=== PATIENT | female | born 1985 | race Caucasian/White ===

== ENCOUNTER → 2024-02-09 09:43 | Outpatient (CLI) | payer OTHER, SELFPAY ==
[2024-02-09 10:50] LABS: Add Manual Diff / Slide Review NO; Basophils Absolute Auto 0 /uL (0-100); Basophils Percent Auto 0.8 % (0-2); Eosinophils Absolute Auto 100 /uL (0-450); Eosinophils Percent Auto 2.5 % (2-4); Hematocrit 38.3 % (36-46); Hemoglobin 12.9 g/dL (12.0-16.0); Lymphocytes Absolute Auto 1100 /uL (1100-4500); Lymphocytes Percent Auto 28.2 % (25-40); Mean Corpuscular HGB Conc 33.8 % (30-36); Mean Corpuscular Hemoglobin 31.3 PG (26-34); Mean Corpuscular Volume 92.6 fL (80-100); Monocytes Absolute Auto 200 /uL (0-900); Monocytes Percent Auto 4.9 % (3-14); Neutrophils Absolute Auto 2400 /uL (1500-7000); Neutrophils Percent Auto 63.6 % (50-75); Platelet Count 271 X10^3/uL (150-400); Red Blood Cell Count 4.14 X10^6/uL (4.0-5.2); Red Cell Distribution Width 13.2 % (11.6-14.8); White Blood Cell Count 3.9 X10^3/uL (4.5-11.0)
[2024-02-09 12:54] LABS: Free T4, Direct Thyroxine 0.95 ng/dL (0.78-2.19)
[2024-02-09 13:08] LABS: TSH w/ Reflex to FT4 1.13 uIU/mL (0.47-4.68)
== END ==
PROVIDERS: PCP Family Medicine; Referring Provider Family Medicine; Visit Provider Family Medicine
DX: N96 Recurrent pregnancy loss (principal); O22.20 Superficial thrombophlebitis in pregnancy, unspecified trimester
CPT/HCPCS: 36415; 81241; 83520; 84439; 84443; 85025; 85303; 86147; 86148

== ENCOUNTER → 2024-03-02 11:49 | Outpatient (CLI) | payer OTHER, SELFPAY ==
--- NOTE | 2024-03-02 11:49 | DI.US.S_ITS ---
PROCEDURE: US PERIPH VENOUS LOW EXTREM LT INDICATIONS: r/o blood clot left thigh TECHNIQUE: Real-time imaging, as well as color and pulse Doppler interrogation, were performed of the lower extremity deep veins from the inguinal ligament to the popliteal fossa, with documentation of the visualized calf veins. COMPARISON: None. FINDINGS: The common femoral, femoral, popliteal, and the visualized calf veins are normally compressible, and free of intraluminal thrombus. Color and pulse Doppler demonstrate normal phasic intraluminal flow. There is normal augmentation response to distal compression maneuver. IMPRESSION: No findings of lower extremity deep venous thrombosis. Dictated by: Milton Doe M.D. on 03/02/2024 at 16:52 Approved by: Milton Doe M.D. on 03/02/2024 at 16:52
== END ==
PROVIDERS: PCP Family Medicine; Referring Provider Family Medicine; Visit Provider Family Medicine
DX: M79.652 Pain in left thigh (principal)
CPT/HCPCS: 93971

== ENCOUNTER → 2024-10-25 07:02 | Outpatient (CLI) | payer OTHER, SELFPAY ==
--- NOTE | 2024-10-25 07:03 | DI.US.S_ITS ---
PROCEDURE: US EXTREMELY NONVASC UPPER RT INDICATIONS: GROWING LUMP POST SUPERIOR UPPPER ARM X 10 YEARS. NO PAIN AT LUMP. LUMP IS CAUSING ARM AND SHOULDER DISCOMFORT. TECHNIQUE: Real-time scanning was performed of the right upper arm, with image documentation. COMPARISON: None. FINDINGS: Focused ultrasound examination of right upper arm at patient's reported area of growing lump shows slightly hyperechoic and solid appearing oval structure measures 5.5 x 4.6 x 2.5 cm in size and show no internal vascularity. The structure is similar in echotexture to adjacent subcutaneous fat. IMPRESSION: Finding likely represent lipoma in right posterior upper arm. Clinical correlation and follow-up is recommended. If there is clinical suspicious of of liposarcoma. Consider MRI of upper arm without and with contrast for further evaluation if indicated. Dictated by: Praveen Jaramillo M.D. on 10/25/2024 at 8:43 Approved by: Praveen Jaramillo M.D. on 10/25/2024 at 8:44
== END ==
PROVIDERS: PCP Family Medicine; Referring Provider Family Medicine; Visit Provider Family Medicine
DX: D17.21 Benign lipomatous neoplasm of skin and subcutaneous tissue of right arm (principal)
CPT/HCPCS: 76882

== ENCOUNTER 2024-11-15 06:11 | Inpatient (IN) | payer OTHER, SELFPAY ==
--- NOTE | 2024-11-15 06:23 | PM.OBHP.1 ---
OB HPI Date/Time Date of admission: 11/15/24 Date Patient Seen: 11/15/24 Time Patient Seen: 06:23 History of Present Condition Chief complaint: obs of labor : 5 Para: 2 Estimated Date of Delivery: 11/12/24 Estimated Gestational Age (weeks): 40.3 Narrative: Pretty Bustamante is a 39 year old female @ [id number] by LMP concordant with 7wk US presents for evaluation of labor. Contractions started overnight, becoming strong at 0400. Currently breathing through regular, though spaced, contractions and feeling shakey. +FM. No vaginal bleeding or leaking of fluid. Uncomplicated care with CNMs. Planning without anesthesia. is present and supportive. History of Present care: good care, initiated at week # (8), number of visits (12) and pounds weight gain (38) Dating criteria: LMP confirmed by 1st trimester US Ultrasounds: normal mid trimester US Obstetrical complications: none Medical complications: none Preadmission Labs Blood type: B (+) positive -: Antibody screen: negative, GBS status: negative, HBsAG: negative, HIV: negative and RPR/VDLR: negative -: Chlamydia screen: not detected and Gonorrhea screen: not detected -: Rubella: immune and Varicella: immune HCT: 34.9 HCAB: negative 1 hr GTT: 57 Narrative: Prior (ies) History: see above Hx # Term Pregnancies: 2 Hx # Pregnancies: 0 Number of Living Children: 2 Multiple births: 0 Spontaneous abortions: 2 Ectopic pregnancies: 0 Elective abortions: 0 Evaluation Evaluation Baseline heart rate: 145 Variability: Moderate (11-25) monitor accelerations: Present Monitor Decelerations: Absent Contraction Frequency (minutes): 6 Uterine Contraction Intensity: Strong/Firm Status: Category l PFSH Medical History Lipoma of axilla Lumbar disc herniation Paresthesia of left leg Superficial thrombophlebitis during Recurrent loss Normal in first trimester Social History (Updated 11/15/24 @ 06:31 by Lana Meraz CNM) marital status: number of children: 2 household members: spouse and children lives independently: Yes caregiver/support person: No housing: house education level: college Smoking Status: Never smoker Meds Home Medications and Allergies Home Medications Medication Instructions Recorded Confirmed Type No Known Home Medications 12/26/23 10/11/24 History Allergies Allergy/AdvReac Type Severity Reaction Status Date / Time No Known Drug Allergies Allergy Unverified 10/11/24 11:38 Review of Systems Review of Systems ROS: Yes All systems reviewed with the patient and are negative except as otherwise documented OB Exam Vital signs Blood Pressure: 130/80 Pulse Rate: 68 Respiratory Rate: 16 Temperature: 97.2 F Resp Effort & Inspection: normal respiratory effort and able to speak in complete sentences Auscultation: clear to auscultation bilaterally Cardio Rate: regular rate Rhythm: regular rhythm Heart Sounds: S1 normal and S2 normal Presentation: vertex Objective Labs 11/15/24 06:49 Assessment and Plan Assessment and Plan Assessment and Plan narrative: A: Term multipara Active labor AMA GBS prophylaxis NOT indicated Cat I FHR P: Admit, routine labor orders. May switch to intermittent auscultations. Labor support PRN. Reassess in 4 hours or soner, PRN, though I anticipate second stage prior to that time. Time-Based Coding :: [TOTAL MINUTES] spent with patient and on the chart (including review of chart, obtaining history, exam, reviewing outside data, placing orders, documenting exam and treatment plan, and counseling patient) on [DATE].
[2024-11-15 06:35] VITALS: BP 130/80; PULSE 68; RESP 16; TEMP 36.2
[2024-11-15 07:02] LABS: Add Manual Diff / Slide Review NO; Basophils Absolute Auto 0 /uL (0-100); Basophils Percent Auto 0.6 % (0-2); Eosinophils Absolute Auto 0 /uL (0-450); Eosinophils Percent Auto 0.4 % (2-4); Hematocrit 37.1 % (36-46); Hemoglobin 12.6 g/dL (12.0-16.0); Lymphocytes Absolute Auto 1000 /uL (1100-4500); Lymphocytes Percent Auto 16.3 % (25-40); Mean Corpuscular HGB Conc 34.1 % (30-36); Mean Corpuscular Volume 90.9 fL (80-100); Monocytes Absolute Auto 300 /uL (0-900); Monocytes Percent Auto 5.6 % (3-14); Neutrophils Absolute Auto 4800 /uL (1500-7000); Neutrophils Percent Auto 77.1 % (50-75); Platelet Count 219 X10^3/uL (150-400); Red Blood Cell Count 4.08 X10^6/uL (4.0-5.2); Red Cell Distribution Width 13.7 % (11.6-14.8); White Blood Cell Count 6.2 X10^3/uL (4.5-11.0)
[2024-11-15] MEDS: OXYTOCIN PREMIX 30 UNIT/500 ML PLAST..BAG 200 UNIT IV (11:28)
[2024-11-15] MEDS: LIDOCAINE 1% 20 ML INJ (11:50)
--- NOTE | 2024-11-15 12:09 | P.PCNOB_ITS ---
Events: Meconium Stained Fluid Labor & Delivery Delivery date: 11/15/24 Delivery Time: 11:25 Intrapartal Events: None Cervical ripening method: none Induction method: none Delivery monitor: external FHT Route of delivery: Episiotomy description: None L&D Laceration Description: Perineal - 2nd Degree Delivery repair: chromic (3.0) Estimated blood loss (mL): 200 Anesthesia Type: None Narrative: Pretty's spontaneous labor progressed well without augmentation or anesthesia. SROM for light meconium stained fluid was followed, within a few contractions, to a strong urge to push. Pretty was presumed to be complete at that time, in hands and knees position on the bed. Strong maternal efforts led to rapid descent of vertex over a very short second stage. NSVB of a viable baby girl in LOP position. There was a single loose nuchal cord and the shoulders delivered without additional maneuvers. [place] was passed through maternal legs to Pretty's arms and Pretty was assisted to recumbent in the bed. was stimulated with drying and bulb suction while skin to skin. Apgars 7/8. 30 units of pitocin in 500mL LR was started at 250mL/hr for AMTSL. After cessation of pulsation, the cord was double clamped by SNM and cut by FOB. Cord blood sample was collected to hold. Gentle cord traction and a single maternal push led to spontaneous, Schultze delivery of an apparently intact placenta, membranes and 3VC. Fundus immediately firm and bleeding scant. Vagina and perineum inspected, revealing a shrt second degree perineal laceration. This was repaired with 3.0 Chromic in the usual fashion, under adequate 1% lidocaine local (6mL). EBL 200mL. Both mother and baby stable and skin to skin as I left the room. [place] Baby 1: Infant gender: Female Presentation: vertex Position: Left Occiput Posterior Placenta delivery description: Spontaneous and Normal Configuration Cord Vessel Description: 3 Vessels, Nuchal Cord and Loose score (1 min): 7 score (5 min): 8 weight: 3.469 kg Plan for aftercare: Routine care
[2024-11-15] MEDS: KETOROLAC 30 MG/ML VIAL IV (12:30)
[2024-11-15] MEDS: DERMOPLAST SPRAY 20% 60 ML 1 SPRAY TOP (14:25)
[2024-11-15] MEDS: ACETAMINOPHEN 325 MG TABLET 650 MG PO ×2 (14:25→21:08)
[2024-11-15] MEDS: WITCH HAZEL/GLYCERIN PADS 1 EACH TOP (15:47)
[2024-11-15] MEDS: IBUPROFEN 600 MG TABLET PO (18:33)
[2024-11-16] MEDS: IBUPROFEN 600 MG TABLET PO ×3 (00:32→14:45)
[2024-11-16] MEDS: ACETAMINOPHEN 325 MG TABLET 650 MG PO ×2 (03:31→08:16)
--- NOTE | 2024-11-16 08:01 | P.DS_ITS ---
Discharge Providers Provider Date of admission: 11/15/24 06:11 Discharge Date: 11/16/24 Primary care physician: Cydney Thorpe MD Consults: 11/16/24 12:08 Consult to Sales Representative Printing Paper Routine Comment: Discharge provider: Lana Meraz CNM Summary Hospital Course Date Patient Seen: 11/16/24 Time Patient Seen: 08:01 Diagnoses: O70.1 Hospital Course: Spontaneous labor progressed without anesthesia or augmentation to NSVB with a second degree perineal laceration. PPD1: Voiding, ambulating and independently. Tolerating a general diet. Cramping pain is well controlled with PO medication. Vaginal bleeding is small with rare gushes and occasional small clots. She and her , Emilio, are feeling ready for discharge to home with their daughter. Peripartum Data Infant Delivery Method: Natural Vaginal Laceration Description: Perineal - 2nd Degree Episiotomy description: None Procedures: O70.1 complications: none [place] 1: Gender: Female Disposition of : home Discharge Diagnosis (1) Del w/ 2 deg lac-unsp: Start Date: 11/15/24 Start Time: 11:25 Status: Acute Status at Discharge Cognitive/behavioral status at discharge: oriented Functional status at discharge: independent ambulation Overall status at discharge: patient is progressing back to baseline Time Spent with Patient Time attestation: Total time spent providing and/or coordinating discharge services: Time spent: Less than 30 minutes Objective Labs 11/15/24 06:49 Labs: Laboratory Results - last 24 hr 11/15/24 06:49 Antibody Screen Negative Exam Vital Signs (past 8 hours): BP 101/66, HR 58, RR 15, Sp)2 99% on RA, T 97.9F Temporal Other: Fundus firm @ U-1, lochia light without clots. Perineum well approximated. Psych Appearance: grossly normal Mental Status: mental status grossly normal Mood: congruent mood Affect: normal affect Discharge Plan Discharge Plan Patient Disposition: Home Discharge orders & Medications Prescriptions: New ibuprofen 600 mg Tablet 600 mg PO Q6HR PRN (Reason: Pain, Mild (1-3)) 14 Days Qty: 60 0RF No Action No Known Home Medications Follow up/Referrals: Lana Meraz CNM [[facility]] - (Follow-up in 2 weeks and 6 weeks. Scheduled appointments are in your email.) Cydney Thorpe MD [Primary Care Provider] - Diet/Activity/Treatments Diet: Diet as Tolerated and Regular Activity: bed rest x 2 weeks, no heavy lifting x 4 weeks, pelvic rest x 6 weeks Skin/Wound/Dressing Care Report to your healthcare provider any signs of infection, such as:: chills, fever, increased pain, unusual drainage and unusual redness Visit Report/Discharge Packet Instructions: DI for Depression Stand Alone Forms: Patient Portal/API, Stroke Signs & Symptoms Discharge Data Primary Care Provider: Cydney Thorpe
[2024-11-16 16:26] VITALS: BP 130/80; PULSE 68; RESP 16; TEMP 36.2
== END 2024-11-16 16:26 | disposition home or self-care (01) | DRG 807 ==
PROVIDERS: Admitting Provider Nurse Practitioner Obstetrics & Gynecology; PCP Family Medicine; Referring Provider Nurse Practitioner Obstetrics & Gynecology; Visit Provider Nurse Practitioner Obstetrics & Gynecology
DX: O70.1 Second degree perineal laceration during delivery (principal); Z37.0 Single live birth; Z3A.40 40 weeks gestation of pregnancy
CPT/HCPCS: 36415; 59050; 85025; 86850; 86900; 86901; G0379; J1885; J2590